=== PATIENT | female | born 1940 | race Caucasian/White ===

== ENCOUNTER 2024-04-04 13:38 | Outpatient (CLI) | payer MEDICARE, BC | END 2024-04-04 13:39 | disposition home or self-care (01) | LOC: CSHRAD 13:38 | PROVIDERS: ATTEND Internal Medicine Rheumatology | DX: M25.552 Pain in left hip (principal); M25.561 Pain in right knee; M25.562 Pain in left knee; M17.0 Bilateral primary osteoarthritis of knee | CPT/HCPCS: 73565 ==

== ENCOUNTER 2024-09-18 10:46 | Outpatient (CLI) | payer MEDICARE, BC | END 2024-09-18 10:47 | disposition home or self-care (01) | LOC: CSHMAMMO 10:46 | PROVIDERS: ATTEND Internal Medicine Rheumatology | DX: Z78.0 Asymptomatic menopausal state (principal); M85.851 Other specified disorders of bone density and structure, right thigh | CPT/HCPCS: 77080 ==